=== PATIENT | male | born 2000 | race American Indian/Alaskan Native ===

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

== ENCOUNTER 2022-10-04 17:11 | Emergency (ER) | payer SELFPAY ==
[2022-10-04 17:40] VITALS: BP 138/84; PULSE 76
[2022-10-04] MEDS ORDERED: Acetaminophen 500 MG Tab PO ONE (17:41)
[2022-10-04] MEDS ORDERED: Ibuprofen 600 MG Tab PO ONE (17:41)
== END 2022-10-04 18:30 | disposition home or self-care (01) ==
LOC: DL.ED 17:11
DX: R07.81 Pleurodynia (principal); F17.210 Nicotine dependence, cigarettes, uncomplicated
CPT/HCPCS: 71101; 99282; 99283; A9270

== ENCOUNTER 2023-04-06 11:51 | Emergency (ER) | payer SELFPAY ==
[2023-04-06 12:15] VITALS: BP 135/71; PULSE 106
[2023-04-06] MEDS: Lidocaine 1% 30 ML SDV INJECT ONE (12:19)
[2023-04-06] MEDS: Sodium Chloride 0.9% 10 ML Syringe FLUSH PRN (12:19)
[2023-04-06 12:31] LABS: BASOPHILS PERCENT AUTO 0.4 % (0.0-1.0); HEMATOCRIT 46.6 % (40.0-54.0); HEMOGLOBIN 15.9 g/dL (14.0-18.0); LYMPHOCYTES PERCENT AUTO 20.6 % (20.5-50.1); MEAN CORPUSCULAR HEMOGLOBIN 32.4 pg (27.0-34.0); MEAN CORPUSCULAR HGB CONC 34.1 g/dL (33.0-35.0); MEAN CORPUSCULAR VOLUME 95.1 fL (80-100); MONOCYTES PERCENT AUTO 6.8 % (2-8); NEUTROPHILS PERCENT AUTO 70.2 % (42.2-75.2); PLATELET COUNT,PLT 277 10^3/uL (150-450); WHITE BLOOD CELL COUNT,WBC 10.7 10^3/uL (5.0-10.0)
[2023-04-06 12:43] LABS: A/G RATIO 1.2; ALANINE AMINOTRANSFERASE,ALT 45 U/L (16-63); ALBUMIN 3.9 g/dL (3.4-5.0); ALKALINE PHOSPHATASE 94 U/L (46-116); ANION GAP 14.7 mEq/L (7-13); ASPARTATE AMNIOTRANSFERASE,AST 27 U/L (15-37); BILIRUBIN TOTAL 0.3 mg/dL (0.2-1.0); BLOOD UREA NITROGEN,BUN 7 mg/dL (7-18); BUN/CREATININE RATIO 7.4 (No establ ref range); CALCIUM 8.8 mg/dL (8.5-10.1); CARBON DIOXIDE,CO2 25 mmol/L (21-32); CHLORIDE,CL 100 mmol/L (98-107); CREATININE 0.95 mg/dL (0.70-1.30); EST CRCL DRUG DOSING (CG) 135.01 mL/min; GLUCOSE RANDOM 141 mg/dL (70-99); POTASSIUM,K 3.7 mmol/L (3.5-5.1); PROTEIN TOTAL,TP 7.2 g/dL (6.4-8.2); SODIUM,NA 136 mmol/L (136-145)
[2023-04-06 12:44] LABS: ESTIMATED GFR 117 mL/min (>=60)
[2023-04-06] MEDS: Bacitracin Oint 1 GM U/D Packet TOP ONE (12:58)
[2023-04-06] MEDS: Take Home: Doxycycline 100 MG Cap, 4 Cap Pack PO ONE (13:11)
== END 2023-04-06 13:16 | disposition home or self-care (01) ==
LOC: DL.ED 11:51
DX: S01.21XA Laceration without foreign body of nose, initial encounter (principal); S20.319A Abrasion of unspecified front wall of thorax, initial encounter; Y04.8XXA Assault by other bodily force, initial encounter
CPT/HCPCS: 12013; 36415; 71045; 80053; 84484; 85025; 93005; 99285; A9270; 93010; 99284; J3490